=== PATIENT | male | born 1965 | race Two or more races ===

== ENCOUNTER 2020-03-25 15:19 | Emergency (ER) | payer OTHER ==
[2020-03-25] MEDS ORDERED: SODIUM CHLORIDE 0.9% 1,000 ML IV STA (15:32)
[2020-03-25 15:34] LABS: Glucose,Whole Blood 103 mg/dL (75-99)
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
[2020-03-25 15:41] VITALS: BP 134/102; PULSE 80; RESP 24; TEMP 98.9
[2020-03-25 15:50] LABS: Basophils # (A) 0.1 k/uL (0-0.2); Basophils % (A) 1 %; Eosinophils # (A) 0.1 k/uL (0-0.7); Eosinophils % (A) 1 %; HCT 46.4 % (39.0-53.0); HGB 15.7 gm/dL (13.0-17.5); Lymphocytes # (A) 1.8 k/uL (1.0-4.8); Lymphocytes % (A) 10 %; MCH 32.3 pg (25.0-35.0); MCHC 33.8 g/dL (31.0-37.0); MCV 95.6 fL (80.0-100.0); Mean Platelet Volume 7.2; Monocytes # (A) 0.5 k/uL (0-1.0); Monocytes % (A) 3 %; Neutrophils # (A) 15.1 k/uL (1.3-7.7); Neutrophils % (A) 85 %; Platelet Count 268 k/uL (150-450); RBC 4.85 m/uL (4.30-5.90); RDW 12.2 % (11.5-15.5); WBC 17.7 k/uL (3.8-10.6)
[2020-03-25 16:02] LABS: ALT 21 U/L (4-49); AST 28 U/L (17-59); African American GFR (CKD) >90 (>60 ml/min/1.73 sqM); Albumin 4.5 g/dL (3.5-5.0); Alcohol <10 mg/dL; Alkaline Phosphatase 60 U/L (38-126); Anion Gap 6 mmol/L; Blood Urea Nitrogen 17 mg/dL (9-20); Calcium 9.5 mg/dL (8.4-10.2); Carbon Dioxide 24 mmol/L (22-30); Chloride 107 mmol/L (98-107); Glucose 111 mg/dL (74-99); Non-African American GFR(CKD) 83 (>60 ml/min/1.73 sqM); Potassium 4.5 mmol/L (3.5-5.1); Sodium 137 mmol/L (137-145); Total Bilirubin 0.6 mg/dL (0.2-1.3); Total Protein 7.4 g/dL (6.3-8.2)
--- NOTE | 2020-03-25 16:05 | XR ---
EXAMINATION TYPE: XR pelvis AP view DATE OF EXAM: 03/25/2020 COMPARISON: NONE HISTORY: Pain TECHNIQUE: Single view FINDINGS: Pelvic ring appears intact. Proximal femurs are intact. Sacroiliac joints appear normal. I see no fracture. IMPRESSION: Normal pelvis.
[2020-03-25 16:06] LABS: Partial Thromboplastin Time 22.3 sec (22.0-30.0); Prothrombin Time 10.3 sec (9.0-12.0)
[2020-03-25] MEDS ORDERED: HYDROmorphone 0.5 MG/0.5 ML SYRINGE IVP STA ×2 (16:09→17:47)
--- NOTE | 2020-03-25 16:10 | XR ---
EXAMINATION TYPE: XR chest 1V portable DATE OF EXAM: 03/25/2020 COMPARISON: NONE HISTORY: Pain TECHNIQUE: Single view FINDINGS: Heart and mediastinum are normal. There is minimal coarsening of interstitial markings. The re are no hilar masses. Costophrenic angles are clear. Bony thorax is intact. IMPRESSION: No active cardiopulmonary disease. Minimal fibrotic changes.
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
[2020-03-25 17:36] LABS: Appearance,Urine Clear (Clear); Bilirubin,Urine Negative (Negative); Blood,Urine Negative (Negative); Color,Urine Light Yellow; Glucose,Urine (UA) Negative (Negative); Ketones,Urine Negative (Negative); Leukocyte Esterase,Urine Negative (Negative); Nitrite,Urine Negative (Negative); Protein,Urine Negative (Negative); Specific Gravity,Urine 1.032 (1.001-1.035); Urobilinogen,Urine <2.0 mg/dL (<2.0)
[2020-03-25 17:52] LABS: Amphetamine Screen,Urine Not Detected (NotDetected); Barbiturate Screen,Urine Not Detected (NotDetected); Benzodiazepines Screen,Urine Not Detected (NotDetected); Cocaine Screen,Urine Not Detected (NotDetected); Methadone Screen, Urine Not Detected (NotDetected); Opiate Screen,Urine Detected (NotDetected); Oxycodone Screen, Urine Not Detected (NotDetected); Phencyclidine Screen,Urine Not Detected (NotDetected); Tricyclic Antidepressant,Urine Not Detected (NotDetected); Urn Cannabinoid Scrn Detected (NotDetected)
--- NOTE | 2020-03-25 18:03 | XR ---
EXAMINATION TYPE: XR ankle complete RT DATE OF EXAM: 03/25/2020 COMPARISON: NONE HISTORY: Ankle pain TECHNIQUE: 3 views FINDINGS: There is comminuted bimalleolar fracture of the right ankle. There is lateral displacement of the talus 10 mm. There is no dislocation. There is probably small chip fracture also the posterior malleolus. There is soft tissue swelling around the ankle joint. IMPRESSION: Trimalleolar fracture of the ankle with mild lateral displacement of the talus.
--- NOTE | 2020-03-25 18:31 | XR ---
EXAMINATION TYPE: XR ankle limited RT DATE OF EXAM: 03/25/2020 COMPARISON: Today HISTORY: Post reduction TECHNIQUE: 2 views FINDINGS: 2 views were obtained through the cast. There is trimalleolar fracture of the right ankle. Fragments are in good anatomic position. Ankle mortise is anatomic. IMPRESSION: Anatomic reduction. No complicating process seen.
== END 2020-03-25 18:36 | disposition home or self-care (01) ==
LOC: EC 15:19
DX: S20.212A Contusion of left front wall of thorax, initial encounter (principal); S82.851A Displaced trimalleolar fracture of right lower leg, initial encounter for closed fracture; Z91.048 Other nonmedicinal substance allergy status; V86.52XA Driver of snowmobile injured in nontraffic accident, initial encounter; Y93.29 Activity, other involving ice and snow
CPT/HCPCS: 36415; 86900; 86901; 80053; 84484; 85025; 85610; 85730; 86850; 81003; 80306; 80320; 72170; 73552; 73130; 73590; 73600; 73610; 71045; 72125; 70450; 71260; 74177; 99285; 96374; 96376; 96361; 27810; J1170; Q9967; 93005

== ENCOUNTER → 2020-03-28 | Outpatient (CLI) | payer OTHER ==
[2020-03-28 09:50] LABS: Basophils % (A) 0 %; Eosinophils # (A) 0.2 k/uL (0-0.7); Eosinophils % (A) 2 %; HCT 46.5 % (39.0-53.0); HGB 15.1 gm/dL (13.0-17.5); Lymphocytes # (A) 1.8 k/uL (1.0-4.8); Lymphocytes % (A) 21 %; MCH 31.9 pg (25.0-35.0); MCHC 32.4 g/dL (31.0-37.0); MCV 98.6 fL (80.0-100.0); Mean Platelet Volume 7.1; Monocytes # (A) 0.4 k/uL (0-1.0); Monocytes % (A) 4 %; Neutrophils # (A) 6.2 k/uL (1.3-7.7); Neutrophils % (A) 71 %; Platelet Count 247 k/uL (150-450); RBC 4.72 m/uL (4.30-5.90); RDW 12.8 % (11.5-15.5); WBC 8.8 k/uL (3.8-10.6)
[2020-03-28 09:52] LABS: Prothrombin Time 10.5 sec (9.0-12.0)
[2020-03-28 09:55] LABS: African American GFR (CKD) >90 (>60 ml/min/1.73 sqM); Anion Gap 4 mmol/L; Blood Urea Nitrogen 15 mg/dL (9-20); Calcium 9.6 mg/dL (8.4-10.2); Carbon Dioxide 30 mmol/L (22-30); Chloride 106 mmol/L (98-107); Glucose 117 mg/dL (74-99); Non-African American GFR(CKD) >90 (>60 ml/min/1.73 sqM); Potassium 4.7 mmol/L (3.5-5.1); Sodium 140 mmol/L (137-145)
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
== END | disposition home or self-care (01) ==
LOC: LABWHC1 08:59
PROVIDERS: ATTEND Orthopaedic Surgery
DX: R07.89 Other chest pain (principal); S82.844D Nondisplaced bimalleolar fracture of right lower leg, subsequent encounter for closed fracture with routine healing
CPT/HCPCS: 36415; 71046; 80048; 85025; 85610

== ENCOUNTER → 2020-03-30 | Day surgery (SDC) | payer OTHER ==
[2020-03-27 12:36] VITALS: BMI 25.0
[~2020-03-30] MED LIST: ACETAMINOPHEN TAB 500 MG TAB PO PRN; DEXAMETHASONE SOD PHOSPHATE 4 MG/ML 1 ML VIAL IV ONE; DEXAMETHASONE SOD PHOSPHATE 4 MG/ML 1 ML VIAL ONE; HYDROmorphone 0.5 MG/0.5 ML SYRINGE IVP PRN; LACTATED RINGERS 1,000 ML IV SCH; LIDOCAINE 1% INJ 10MG/ML (20 ML MDV) ONE; MIDAZOLAM 2 MG/2 ML VIAL IV PRN; MIDAZOLAM 2 MG/2 ML VIAL IVP ONE; ONDANSETRON 4 MG/2 ML VIAL IVP ONE; PROPOFOL 10 MG/ML 20 ML VIAL IV ONE; ROPIVACAINE 5 MG/ML 30 ML VIAL ONE; SCOPOLAMINE 1.5MG/72HR PATCH TRANSDERM ONE; fentaNYL (PF) 50 MCG/ML 2 ML AMP ONE
--- NOTE | 2020-03-30 12:41 | P.ANPRN ---
Procedure Note - Anesthesia - Nerve Block Performed Right Adductor Canal Single Time Out Performed: Yes Date of Procedure: 03/30/20 Procedure Start Time: 12:00 Procedure Stop Time: 12:10 Location of Patient: PreOp Indication: Acute Post-Operative Pain, Requested by Surgeon Sedation Type: Sedate with meaningful contact maintained Preparation: Sterile Prep, Sterile Dressing Position: Supine Catheter: None Needle Types: On-Q Needle Gauge: 20 Ultrasound used to visualize needle placement: Yes Ultrasound used to observe medication spread: Yes Injectate: 0.5% Ropivacaine (see comment for volume) (20 ml + decadron 4 mg) Blood Aspirated: No Pain Paresthesia on Injection Noted: No Resistance on Injection: Normal Image Stored and Saved: Yes Events: Uneventful and Well Tolerated Right Popliteal Single Date of Procedure: 03/30/20 Procedure Start Time: 12:11 Procedure Stop Time: 12:20 Location of Patient: PreOp Indication: Acute Post-Operative Pain, Requested by Surgeon Sedation Type: Sedate with meaningful contact maintained Preparation: Sterile Prep, Sterile Dressing Position: Left Lateral Catheter: None Needle Types: On-Q Needle Gauge: 20 Ultrasound used to visualize needle placement: Yes Ultrasound used to observe medication spread: Yes Injectate: 0.5% Ropivacaine (see comment for volume) (20 ml + decadron 4 mg) Blood Aspirated: No Pain Paresthesia on Injection Noted: No Resistance on Injection: Normal Image Stored and Saved: Yes Events: Uneventful and Well Tolerated
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
[2020-03-30 15:47] VITALS: TEMP 97.8
[2020-03-30 16:28] VITALS: RESP 17
[2020-03-30 16:35] VITALS: BP 125/84; PULSE 67
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
== END | disposition home or self-care (01) ==
LOC: OR 11:08
PROVIDERS: ATTEND Orthopaedic Surgery
DX: S82.841A Displaced bimalleolar fracture of right lower leg, initial encounter for closed fracture (principal); F17.210 Nicotine dependence, cigarettes, uncomplicated; Z98.890 Other specified postprocedural states; Z91.09 Other allergy status, other than to drugs and biological substances; Z79.891 Long term (current) use of opiate analgesic; Z96.659 Presence of unspecified artificial knee joint; V86.92XA Unspecified occupant of snowmobile injured in nontraffic accident, initial encounter; Y93.29 Activity, other involving ice and snow
CPT/HCPCS: 64447; 64445; 76942; 73600; 27814; C1713 ×2; J2250; J1100; J0690; J2405; J2001; J3010; J2795; J2704

== ENCOUNTER → 2023-03-30 | Outpatient (CLI) | payer OTHER ==
[2023-03-31 02:01] LABS: Basophils # (A) 0.05 X 10*3/uL (0.00-0.10); Basophils % (A) 0.6 %; Eosinophils # (A) 0.17 X 10*3/uL (0.04-0.35); Eosinophils % (A) 2.1 %; HCT 45.1 % (39.6-50.0); HGB 14.9 g/dL (13.0-17.0); Lymphocytes # (A) 2.54 X 10*3/uL (0.90-5.00); Lymphocytes % (A) 30.9 %; MCH 31.8 pg (27.0-32.0); MCV 96.2 FL (80.0-97.0); Mean Platelet Volume 9.7 FL (9.5-12.2); Monocytes # (A) 0.29 X 10*3/uL (0.20-1.00); Monocytes % (A) 3.5 %; NRBC Per 100 WBC 0 X 10*3/uL (0.00-0.01); Neutrophils # (A) 5.14 X 10*3/uL (1.80-7.70); Neutrophils % (A) 62.5 %; Platelet Count 297 X 10*3/uL (140-440); RBC 4.69 X 10*6/uL (4.40-5.60); RDW 12.6 % (11.5-14.5); WBC 8.22 X 10*3/uL (4.50-10.00)
[2023-03-31 02:32] LABS: Anion Gap 10.7 mmol/L (4.00-12.00); Carbon Dioxide 24.3 mmol/L (21.6-31.8); Potassium 4.8 mmol/L (3.5-5.5)
== END | disposition home or self-care (01) ==
LOC: LABPAT 12:21
PROVIDERS: ATTEND Orthopaedic Surgery Hand Surgery
DX: Z01.812 Encounter for preprocedural laboratory examination (principal); G56.02 Carpal tunnel syndrome, left upper limb; M65.332 Trigger finger, left middle finger; M65.349 Trigger finger, unspecified ring finger
CPT/HCPCS: 36415; 80051; 85025

== ENCOUNTER 2023-04-08 09:53 | Day surgery (SDC) | payer OTHER ==
[2023-03-31 08:57] VITALS: BMI 25.8
--- NOTE | 2023-03-31 09:59 | P.HPOR ---
History of Present Illness H&P Date: 03/31/23 Subjective: This is a 57 year old male that presents today for initial evaluation regarding a year history of progressively worsening left hand paresthesias in the thumb, index, middle and ring fingers and associated pain with locking catching and clicking of the left middle and ring fingers. The patient denies any inciting event. Physical Examination: LUE: AIN/PIN/Radial/Ulnar/Median motor intact. Radial/Ulnar/Median SILT. 2+/4 Radial/Ulnar pulses palpated. 5/5 APB, 5/5 FDI. Negative Finkelsteins, negative CMC grind, positive Durkan's compression. TTP over LMF and LRF A1 akua with locking/catching. EMG/NCV: EMG/NCV performed on 10/16/21 demonstrates moderate bilateral carpal tunnel syndrome. Right C6/7 radiculopathy. Impression: 1.) Left carpal tunnel syndrome 2.) Left middle finger trigger finger 3.) Left ring finger trigger finger Plan: Diagnosis and treatment options were discussed with the patient. The patient has failed conservative treatment and would like to pursue a left endoscopic vs open carpal tunnel release and left middle and ring finger A1 akua release. Risks and benefits of surgery including bleeding, infection, damage to surrounding tis vikas, need for further surgery, possible need to convert to open procedure, residual numbness were discussed and the patient wished to go forward with surgery. -Christian Saul DO Orthopedic Hand/Upper Extremity Surgeon Past Medical History Past Medical History: Cancer, Osteoarthritis (OA) Additional Past Medical History / Comment(s): SKIN CANCER-BASAL CELL History of Any Multi-Drug Resistant Organisms: None Reported Past Surgical History: Joint Replacement, Orthopedic Surgery Additional Past Surgical History / Comment(s): TOTAL RIGHT KNEE REPLACEMENT, LEFT KNEE ARTHROSCOPIC, RIGHT COLLAR BONE-WITH SCREWS- THAN REMOVAL OF HARDWARE, orif ankle surgery, Past Anesthesia/Blood Transfusion Reactions: No Reported Reaction Smoking Status: Former smoker - Past Family History Mother Family Medical History: Cancer Additional Family Medical History / Comment(s): LUNG CANCER Medications and Allergies Home Medications Medication Instructions Recorded Confirmed Type No Known Home Medications 03/31/23 03/31/23 History Allergies Allergy/AdvReac Type Severity Reaction Status Date / Time ragweed pollen Allergy Itching Verified 03/31/23 08:20 Physical Examination Osteopathic Statement: *. No significant issues noted on an osteopathic structural exam other than those noted in the History and Physical/Consult.
[~2023-04-08 09:53] MED LIST changes: -ACETAMINOPHEN TAB 500 MG TAB PO PRN; -DEXAMETHASONE SOD PHOSPHATE 4 MG/ML 1 ML VIAL IV ONE; -DEXAMETHASONE SOD PHOSPHATE 4 MG/ML 1 ML VIAL ONE; -HYDROmorphone 0.5 MG/0.5 ML SYRINGE IVP PRN; -LIDOCAINE 1% INJ 10MG/ML (20 ML MDV) ONE; -MIDAZOLAM 2 MG/2 ML VIAL IV PRN; -MIDAZOLAM 2 MG/2 ML VIAL IVP ONE; -PROPOFOL 10 MG/ML 20 ML VIAL IV ONE; +Pre Op ABX Message 1 EACH MISC MISCELLANE ONE; -ROPIVACAINE 5 MG/ML 30 ML VIAL ONE; -SCOPOLAMINE 1.5MG/72HR PATCH TRANSDERM ONE; +fentaNYL (PF) 50 MCG/ML 2 ML AMP IV PRN; -fentaNYL (PF) 50 MCG/ML 2 ML AMP ONE
[2023-04-08] MEDS ORDERED: DEXAMETHASONE SOD PHOSPHATE 4 MG/ML 1 ML VIAL IVP ONE (10:20)
[2023-04-08 10:25] VITALS: TEMP 97.5
[2023-04-08] MEDS ORDERED: PROPOFOL 10 MG/ML 20 ML VIAL IV ONE (11:12)
[2023-04-08] MEDS ORDERED: PHENYLEPHRINE-0.9% NACL SYG 1,000 MCG/10 ML SYRINGE ONE (11:12)
[2023-04-08] MEDS ORDERED: fentaNYL (PF) 50 MCG/ML 2 ML AMP ONE (11:12)
[2023-04-08] MEDS ORDERED: MIDAZOLAM 2 MG/2 ML VIAL ONE (11:12)
[2023-04-08] MEDS ORDERED: LIDOCAINE 2% INJ 20 MG/ML SQ ONE (11:18)
[2023-04-08] MEDS ORDERED: BUPIVACAINE (PF) 0.5% 30 ML VIAL SQ ONE (11:18)
--- NOTE | 2023-04-08 11:48 | P.OP ---
Date of Procedure: 04/08/23 Preoperative Diagnosis: 1.) Left carpal tunnel syndrome 2.) Left middle finger trigger finger 3.) Left ring finger trigger finger Postoperative Diagnosis: 1.) Left carpal tunnel syndrome 2.) Left middle finger trigger finger 3.) Left ring finger trigger finger Procedure(s) Performed: 1.) Left endoscopic carpal tunnel release 2.) Left middle finger A1 akua release 3.) Left ring finger A1 akua release Anesthesia: GETA Surgeon: Christian Saul Critical Care Physician Assistant #1: Timbo Underwood Estimated Blood Loss (ml): 0 Pathology: none sent Condition: stable Disposition: PACU Description of Procedure: This is a 57 year old male who presents today for a right endoscopic carpal tunnel release and right middle and ring finger A1 akua releases after having failed conservative treatment in the past. Risks and benefits of surgery were discussed with the patient including bleeding, damage to surrounding tissue, infection, need to convert to open procedure, need for further surgery as well as risks of anesthesia including pulmonary embolism and even and the patient wished to proceed with surgical intervention. The patients was seen in the pre-operative area by myself. Consent and H&P were completed and updated. The correct extremity was marked in the pre-operative area by myself and all other questions were answered. Operative Narrative: The patient was brought to the operating room by the department of anesthesia. They remained on the portable stretcher and a rolling hand table was brought to the side of the operative extremity. Pre-operative time out was performed indicating the correct patient, procedure and laterality. All in the room agreed. The patient was then drifted off to sleep by the department of anesthesia. MAC anesthesia was utilized and a 50:50 mixture of 1% Lidocaine and 0.5% bupivacaine was injected into the subcutaneous tissues of the palmar skin, 10ccs total. A nonsterile tourniquet was then applied to the operative extremity and the right upper extremity was then prepped and draped in normal sterile fashion. The operative extremity was the exsanguinated with an esmarch bandage and the tourniquet was inflated to 250mmHg. 15 blade scalpel was utilized to make a transverse incision on the palmar skin just ulnar to the palmaris longus tendon at the level of the distal wrist crease. Ragnell retractor was then placed radially and blunt dissection was performed to reveal the distal forearm fascia. This was lifted with fine Abisai pick ups and Littler tenotomy scissors were then used to open the forearm fascia transversely and a double skin hook was then placed. Hamate finder was placed into the carpal tunnel and then sequential sized dilators were inserted followed by the synovial elevator to separate the flexor tenosynovium from the undersurface of the transverse carpal ligament and a washboard texture was felt. The MicroAire endoscopic carpal tunnel release system gun was the then inserted into the carpal tunnel hugging the deep portion of the transverse carpal ligament in line with the base of the ring finger. Transverse fibers of the ligament were directly visualized. Pressure was applied on the palm to reveal the distal extent of the transverse carpal ligament. The blade was then deployed and the distal half of the transverse carpal ligament was released. The scope was then brought distal again and remaining transverse fibers were incised with the blade. The proximal half of the transverse carpal ligament was then divided and again the scope was advanced distal and remaining transverse fibers were incised with the blade. The radial and ulnar leaflets were directly visualized and mobile consistent with complete release. Tenotomy scissors were then utilized to release the remaining distal forearm fascia under direct visualization taking care to preserve the palmar cutaneous branch of the median nerve. Skin closure was performed with interrupted 4-0 Monocryl suture followed by steri strips. Oblique incision was made centered at the base of the middle and ring fingers. Blunt dissection was taken down to the level of the A1 akua of the middle finger. Ragnell retractors were placed both radially and ulnarly to protect neurovascular bundles. Littler tenotomy scissors were then used to release the A1 akua from proximal to distal under direct visualization. Proximal fascial attachments were released. The tendon was then taken through range of motion and no locking or catching was appreciated. Through the same incision the right ring finger was approached blunt dissection was taken down to the level of the A1 akua. Ragnell retractors were placed both radially and ulnarly to protect neurovascular bundles. Littler tenotomy scissors were then used to release the A1 akua from proximal to distal under direct visualization. Proximal fascial attachments were released. The tendon was then taken through range of motion and no locking or catching was appreciated. The wound was then closed with interrupted 4-0 nylon sutures in a horizontal mat tress fashion. The wound was then closed with interrupted 4-0 nylon sutures in a horizontal mattress fashion. Sterile dressing was applied consisting 4x4s, Webril, and an arlen bandage. Tourniquet was let down and the hand immediately was well perfused. The patient was then woken by the department of anesthesia and transferred to PACU in stable condition. Timbo MOORE was present for the case in its entirety and assisted in major portions of the case and protection of vital neurovascular structures. Christian Saul D.O. Orthopedic Hand/Upper Extremity Surgeon
[2023-04-08 12:35] VITALS: BP 123/83; PULSE 52; RESP 20
== END 2023-04-08 12:40 | disposition home or self-care (01) ==
LOC: OR 09:53
PROVIDERS: ATTEND Orthopaedic Surgery Hand Surgery
DX: G56.02 Carpal tunnel syndrome, left upper limb (principal); M65.332 Trigger finger, left middle finger; M65.342 Trigger finger, left ring finger; M19.90 Unspecified osteoarthritis, unspecified site; J30.1 Allergic rhinitis due to pollen; F12.90 Cannabis use, unspecified, uncomplicated; Z85.828 Personal history of other malignant neoplasm of skin; Z87.891 Personal history of nicotine dependence; Z80.1 Family history of malignant neoplasm of trachea, bronchus and lung; Z96.651 Presence of right artificial knee joint
CPT/HCPCS: 29848; 26055 ×2; J2001; J2250; J1100; J2405; J3010; J2704; J2371; J0665